=== PATIENT | female | born 1975 | race African-American/Black ===

== ENCOUNTER 2016-08-07 16:36 | Emergency (ER) | payer OTHER ==
[~2016-08-07] VITALS: Ht 167.6 cm; Wt 98.0 kg
[2016-08-07 16:57] VITALS: BP 185/110
[2016-08-07] MEDS ORDERED: Lidocaine 1% 10mg/ml/Epi 0.005mg/ml 30ml vial INJ ONE (17:00)
[2016-08-07] MEDS ORDERED: TdaP Vaccine 0.5ml Syr IM ONE (17:00)
[2016-08-07] MEDS ORDERED: IBUPROFEN600 MG ORAL (18:05)
[2016-08-07] MEDS ORDERED: CEPHALEXIN500 MG ORAL (18:05)
[2016-08-07 18:09] VITALS: BP 177/122
[2016-08-07] MEDS ORDERED: Atenolol 25mg tab ORAL ONE (18:15)
[2016-08-07 18:29] VITALS: BP 149/94
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
--- NOTE | 2016-08-08 10:05 | Diagnostic Imaging Report ---
Indication: Chest pain Technique: XRAY CHEST 2V Comparison: None Findings: The cardiomediastinal silhouette is within normal limits. There is no focal consolidation, pneumothorax or pleural effusion. Osseous structures demonstrate no acute abnormality. Impression: No acute cardiopulmonary disease.
== END 2016-08-07 18:30 | disposition home or self-care (01) ==
LOC: EMR 17:45
DX: S01.511A Laceration without foreign body of lip, initial encounter (principal); S20.219A Contusion of unspecified front wall of thorax, initial encounter; V43.52XA Car driver injured in collision with other type car in traffic accident, initial encounter; Y92.410 Unspecified street and highway as the place of occurrence of the external cause; Z23 Encounter for immunization; I10 Essential (primary) hypertension; Z88.0 Allergy status to penicillin
CPT/HCPCS: 12011; 71020; 81025; 90471; 90715; 99284; Z7502